=== PATIENT | male | born 1950 | race Caucasian/White ===

== ENCOUNTER → 2016-10-09 | Day surgery (SDC) | payer MEDICARE, OTHER ==
[2016-10-09 12:50] LABS: HCT 42.8 % (42.0-52.0); HGB 14.2 g/dl (13.2-18.0); MCH 27.1 pg (25.0-31.0); MCHC 33.2 g/dL (32.0-36.0); MCV 81.7 fL (78.0-100.0); MPV 10.6 fL (6.0-9.5); RBC 5.24 M/uL (4.70-6.00); RDW 14.3 % (11.5-14.0); WBC 7.2 K/uL (4.0-10.5)
[2016-10-09 13:05] LABS: CREATININE 0.8 mg/dL (0.7-1.2); POTASSIUM 4.1 mmol/L (3.5-5.1)
[2016-10-09 14:02] LABS: INR 0.98 (0.9-1.2); PROTHROMBIN TIME 12.6 SECONDS (11.7-14.0); PTT 34.3 SECONDS (23.2-31.4)
== END | disposition home or self-care (01) ==
LOC: FAS 13:27
PROVIDERS: Anesthesiology; Legal Medicine
DX: M75.122 Complete rotator cuff tear or rupture of left shoulder, not specified as traumatic (principal); M75.42 Impingement syndrome of left shoulder; M19.012 Primary osteoarthritis, left shoulder; M19.90 Unspecified osteoarthritis, unspecified site; I10 Essential (primary) hypertension; E78.00 Pure hypercholesterolemia, unspecified; Z95.5 Presence of coronary angioplasty implant and graft; Z98.890 Other specified postprocedural states; Z86.73 Personal history of transient ischemic attack (TIA), and cerebral infarction without residual deficits; Z87.891 Personal history of nicotine dependence; Z79.02 Long term (current) use of antithrombotics/antiplatelets; Z79.82 Long term (current) use of aspirin; Z79.899 Other long term (current) drug therapy
CPT/HCPCS: 36415; 80048; 85610; 85730; C1713; J0690; J1100; J2405; J2704; J2710; J2795; J3010